=== PATIENT | female | born 1995 | race Caucasian/White ===

== ENCOUNTER 2018-03-07 18:18 | Emergency (ER) | payer MEDICAID ==
[2018-03-07 18:29] VITALS: BP 130/65
--- NOTE | 2018-03-07 19:11 | ED Physician Documentation ---
PD HPI HEENT - Stated complaint Stated Complaint: L EAR PX - Chief complaint Chief Complaint: Heent - History obtained from History obtained from: Patient - History of Present Illness Timing - onset: How many days ago (1-2) Timing - duration: Days Timing - details: Gradual onset, Still present Location: Left ear Worsens: Swalllowing, Position Associated symptoms: Other (some mild left lower dental pain). No: Fever, Congestion, Rhinorrhea, Facial swelling, Cough Recently seen: Not recently seen Review of Systems Constitutional: denies: Fever Ears: reports: Ear pain (just left side) Nose: denies: Rhinorrhea / runny nose, Congestion Throat: reports: Dental pain / toothache (left lower tooth intermittently). 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 : None HEENT: None Psych: Depression, Anxiety Musculoskeletal: None Derm: None - Past Surgical History Past Surgical History: Yes HEENT: Tonsil/Adenoidectomy - Present Medications Home Medications: Ambulatory Orders Medication Instructions Recorded Confirmed Bupropion HCl [Bupropion Xl] 300 mg PO DAILY 03/07/18 03/07/18 Cetirizine [ZyrTEC] 10 mg PO DAILY #15 tablet 03/07/18 Dexamethasone [Decadron] 4 mg PO DAILY #5 tablet 03/07/18 Doxycycline Hyclate 100 mg PO BID #10 capsule 03/07/18 - Allergies Allergies/Adverse Reactions: Allergies Allergy/AdvReac Type Severity Reaction Status Date / Time amoxicillin Allergy Unknown Verified 03/07/18 18:29 - Social History Does the pt smoke?: No Smoking Status: Never smoker Does the pt drink ETOH?: No Does the pt have substance abuse?: No - Immunizations Immunizations are current?: Yes - POLST Patient has POLST: No PD ED PE NORMAL - Vitals Vital signs reviewed: Yes - General General: Alert and oriented X 3, No acute distress, Well developed/nourished - HEENT HEENT: Moist mucous membranes, Pharynx benign, Other. No: Ears normal (right is normal. Left TM with bulging and fluid behind it. Not red. The canal appears normal. ), Dentition benign (there is some caries lower left but no gum swelling nor redness. No percussion nor occlusial tenderness. ) - Neck Neck: Supple, no meningeal sign, No adenopathy - Cardiac Cardiac: RRR, No murmur - Respiratory Respiratory: Clear bilaterally Results - Vitals Vitals: Vital Signs - 24 hr 03/07/18 18:28 Temperature 36.8 C Heart Rate 86 Respiratory 16 Rate Blood Pressure 130/65 O2 Saturation 99 Oxygen O2 Source Room air PD MEDICAL DECISION MAKING - ED course Complexity details: reviewed results, considered differential (focal serous otitis without URI symptoms. ), d/w patient Departure - Departure Disposition: Home, Self Care Clinical Impression: Serous otitis media Qualifiers: Chronicity: acute Laterality: left Recurrence: non-recurrent Qualified Code(s): H65.02 - Acute serous otitis media, left ear Condition: Stable Record reviewed to determine appropriate education?: Yes Instructions: ED Otitis Media Acute Adult Follow-Up: Jarrod Mcallister DO [Primary Care Provider] - Prescriptions: Cetirizine [ZyrTEC] 10 mg PO DAILY #15 tablet Dexamethasone [Decadron] 4 mg PO DAILY #5 tablet Doxycycline Hyclate 100 mg PO BID #10 capsule Comments: There look to be fluid behind the eardrum with some pressure. This is likely inflammation and fluid only. Treated with Decadron and cetirizine for those. Add Tylenol if needed for pains. There could possibly be an early infection to it and so we could treat with antibiotics for a few days just in case this would be doxycycline twice a day for 5 days. Recheck if not improving over the next few days. Discharge Date/Time: 03/07/18 19:52
[2018-03-07] MEDS ORDERED: ACETAMINOPHEN 500 MG TABLET PO STA (19:20)
[2018-03-07] MEDS ORDERED: DEXAMETHASONE 10 MG/ML VIAL PO STA (19:20)
[2018-03-07] MEDS ORDERED: CETIRIZINE 10 MG TABLET PO STA (19:20)
[2018-03-07] MEDS ORDERED: CHERRY SYRUP 10 ML UDC PO ONE (19:30)
[2018-03-07] MEDS ORDERED: DOXYCYCLINE 100 MG TABLET PO STA (19:43)
== END 2018-03-07 19:52 | disposition home or self-care (01) ==
LOC: ED 18:18
DX: H65.02 Acute serous otitis media, left ear (principal); K02.9 Dental caries, unspecified
CPT/HCPCS: 99283; A9270

== ENCOUNTER 2018-03-13 13:10 | Emergency (ER) | payer MEDICAID ==
[2018-03-13 13:23] VITALS: BP 140/113
[2018-03-13] MEDS ORDERED: NAPROXEN 250 MG TABLET PO STA (13:49)
[2018-03-13] MEDS ORDERED: HYDROcod/ACETAM 5/325 MG TABLET PO STA (13:50)
--- NOTE | 2018-03-13 13:50 | ED Physician Documentation ---
PD HPI HEENT - Stated complaint Stated Complaint: TOOTH PX - Chief complaint Chief Complaint: Heent - History obtained from History obtained from: Patient - History of Present Illness Timing - onset: Other (Ongoing dental pain intermittently for a significant period of time) Timing - details: Gradual onset Severity Comments: moderate Location: Tooth Improves: Nothing Worsens: Everything Associated symptoms: No: Fever, Congestion, Rhinorrhea, Trismus, Unable to swallow, Facial swelling, Headache, Cough Similar symptoms before: Other (The patient currently is on an antibiotic) Recently seen: Emergency Dept Review of Systems Unable to obtain: Unresponsive (8) Constitutional: denies: Fever, Fatigue Eyes: denies: Loss of vision Ears: denies: Ear pain Nose: denies: Congestion Throat: reports: Dental pain / toothache Cardiac: denies: Chest pain / pressure Respiratory: denies: Dyspnea PD PAST MEDICAL HISTORY - Past Medical History Cardiovascular: None Respiratory: None Neuro: None Endocrine/Autoimmune: None GI: None 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 : None HEENT: None Psych: Depression, Anxiety Musculoskeletal: None Derm: None - Past Surgical History Past Surgical History: Yes HEENT: Tonsil/Adenoidectomy - Present Medications Home Medications: Ambulatory Orders Medication Instructions Recorded Confirmed Bupropion HCl [Bupropion Xl] 300 mg PO DAILY 03/07/18 03/13/18 Cetirizine [ZyrTEC] 10 mg PO DAILY #15 tablet 03/07/18 03/13/18 Dexamethasone [Decadron] 4 mg PO DAILY #5 tablet 03/07/18 03/13/18 Doxycycline Hyclate 100 mg PO BID #10 capsule 03/07/18 03/13/18 Naproxen 500 mg PO BID PRN #60 tablet 03/13/18 - Allergies Allergies/Adverse Reactions: Allergies Allergy/AdvReac Type Severity Reaction Status Date / Time amoxicillin Allergy Unknown Verified 03/13/18 13:17 - Social History Does the pt smoke?: No Smoking Status: Never smoker Does the pt drink ETOH?: No Does the pt have substance abuse?: No - Immunizations Immunizations are current?: Yes - POLST Patient has POLST: No PD ED PE NORMAL - General General: Alert and oriented X 3, No acute distress - Neck Neck: Supple, no meningeal sign, No adenopathy - Cardiac Cardiac: RRR - Respiratory Respiratory: No respiratory distress - Derm Derm: Normal color - Neuro Neuro: Alert and oriented X 3 - Psych Psych: Normal mood PD ED PE EXPANDED - HEENT HEENT: Moist mucous membranes, Pharynx normal, Dental decay. No: Rhinorrhea, Soft palate petecchiae, SPA SUPERVISOR, Dental abscess, Dry socket, Tongue laceration (The patient has tenderness to palpation in the teeth of the Lower jaw, there is no abscess. The patient does have gingivitis. There is no facial swelling To suggest abscess or facial cellulitis.), Buccal laceration Results - Vitals Vitals: Vital Signs - 24 hr 03/13/18 13:15 Temperature 35.7 C L Heart Rate 70 Respiratory 20 Rate Blood Pressure 140/113 H O2 Saturation 100 Oxygen O2 Source Room air PD MEDICAL DECISION MAKING - ED course ED course: The patient has ongoing pain from her teeth, there is no area of abscess to perform an incision and drainage. The patient has no evidence of a facial abscess or facial cellulitis or sepsis. The patient appears appropriate for ongoing outpatient management and I will add a anti-inflammatory to her regiment. I recommended following up with the dentist for ongoing management. I discussed warning signs and recommended returning for any worsening or any concerns Departure - Departure Disposition: Home, Self Care Clinical Impression: Pain, dental Condition: Good Instructions: ED Tooth Pain Prescriptions: Naproxen 500 mg PO BID PRN #60 tablet PRN Reason: Pain Comments: Please follow-up with the dentist as scheduled Please return for any worsening or any concerns
== END 2018-03-13 14:14 | disposition home or self-care (01) ==
LOC: ED 13:10
DX: K08.89 Other specified disorders of teeth and supporting structures (principal); K02.9 Dental caries, unspecified; K05.10 Chronic gingivitis, plaque induced
CPT/HCPCS: 99283; A9270

== ENCOUNTER 2018-03-19 11:30 | Emergency (ER) | payer MEDICAID ==
[2018-03-19] MEDS ORDERED: guaiFENesin/CODEINE 5 ML UDC PO STA (12:14)
[2018-03-19] MEDS ORDERED: HYDROcod/ACETAM 5/325 MG TABLET PO STA (12:14)
--- NOTE | 2018-03-19 12:17 | ED Physician Documentation ---
PD HPI URI - Stated complaint Stated Complaint: FEVER/COUGH - Chief complaint Chief Complaint: Resp - History obtained from History obtained from: Patient, Family - History of Present Illness Timing - onset: Yesterday (Healthy 22-year-old woman has been sick since yesterday with nonproductive cough, severe body aches, fevers and chills. Her family member was diagnosed with influenza earlier in the week. No possibility of . No comorbidities to necessitate antiviral medication such as asthma, diabetes.) Review of Systems Constitutional: reports: Fever, Chills, Fatigue, Sweats Ears: denies: Ear pain Nose: reports: Rhinorrhea / runny nose Throat: denies: Sore throat Respiratory: reports: Cough. 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 : None HEENT: None Psych: Depression, Anxiety Musculoskeletal: None Derm: None - Past Surgical History Past Surgical History: Yes HEENT: Tonsil/Adenoidectomy - Present Medications Home Medications: Ambulatory Orders Medication Instructions Recorded Confirmed Bupropion HCl [Bupropion Xl] 300 mg PO DAILY 03/07/18 03/19/18 Hydrocodone/Acetaminophen 1 - 2 each PO Q6H PRN #10 tablet 03/19/18 [Hydrocodon-Acetaminophen 5-325] Ibuprofen [Motrin] 800 mg PO Q8H PRN #30 tablet 03/19/18 guaiFENesin/CODEINE [Robitussin AC] 5 - 10 ml PO Q6H PRN #120 ml 03/19/18 - Allergies Allergies/Adverse Reactions: Allergies Allergy/AdvReac Type Severity Reaction Status Date / Time amoxicillin Allergy Unknown Verified 03/13/18 13:17 hydromorphone Allergy Anaphylaxis Verified 03/19/18 11:49 - Social History Does the pt smoke?: No Smoking Status: Never smoker Does the pt drink ETOH?: No Does the pt have substance abuse?: No - Immunizations Immunizations are current?: Yes - POLST Patient has POLST: No PD ED PE NORMAL - Vitals Vital signs reviewed: Yes - General General: Alert and oriented X 3, No acute distress - HEENT HEENT: Ears normal, Pharynx benign - Neck Neck: Supple, no meningeal sign, No bony TTP - Cardiac Cardiac: RRR, No murmur - Respiratory Respiratory: No respiratory distress, Clear bilaterally - Abdomen Abdomen: Non tender - Derm Derm: No rash - Neuro Neuro: Alert and oriented X 3, Normal speech Results - Vitals Vitals: Vital Signs - 24 hr 03/19/18 11:43 Temperature 36.7 C Heart Rate 90 Respiratory 18 Rate Blood Pressure 124/73 O2 Saturation 100 Oxygen O2 Source Room air PD MEDICAL DECISION MAKING - ED course ED course: This is an otherwise healthy 22-year-old woman with a 1 day illness consistent with influenza. There is no evidence of bacterial superinfection. We discussed the pros and cons of antiviral medication and I recommended against them given her otherwise healthy status and she agreed. Therefore no influenza testing is necessary. Departure - Departure Disposition: 01 Home, Self Care Clinical Impression: Influenza Condition: Good Record reviewed to determine appropriate education?: Yes Instructions: ED Flu Prescriptions: guaiFENesin/CODEINE [Robitussin AC] 5 - 10 ml PO Q6H PRN #120 ml PRN Reason: Cough Hydrocodone/Acetaminophen [Hydrocodon-Acetaminophen 5-325] 1 - 2 each PO Q6H PRN #10 tablet PRN Reason: pain Ibuprofen [Motrin] 800 mg PO Q8H PRN #30 tablet PRN Reason: PAIN &/OR FEVER Comments: Return if worse or if new symptoms develop. Also return if you develop with called a biphasic illness i.e. if you are getting much better and then after a couple of days get much worse again. Do not drink or drive while taking narcotic pain medication. Note that many narcotic pain relievers also contain Tylenol/acetaminophen. Please ensure that your total dose of acetaminophen from all sources does not exceed 3 g (3000 mg) per day. You may get constipated while on this medication. Take a stool softener such as Colace twice a day while you are on it. Also add an [id number] laxative such as senna or MiraLAX on any day that you do not have a bowel movement. If you received a narcotic pain medication or sedative while in the emergency department, do not drive for the next 24 hours.
[2018-03-19 12:28] VITALS: BP 108/61
== END 2018-03-19 12:38 | disposition home or self-care (01) ==
LOC: ED 11:30
DX: J11.1 Influenza due to unidentified influenza virus with other respiratory manifestations (principal)
CPT/HCPCS: 99283; A9270